=== PATIENT | male | born 1990 | race Asian ===

== ENCOUNTER 2020-08-10 13:06 | Outpatient (REF) | payer OTHER, SELFPAY | END 2020-08-10 13:07 | disposition home or self-care (01) | LOC: HO.LAB 13:06 | PROVIDERS: PCP Family Medicine; Visit Provider Internal Medicine | DX: Z20.828 Contact with and (suspected) exposure to other viral communicable diseases (principal) | CPT/HCPCS: C9803; U0003 ==

== ENCOUNTER 2021-07-08 07:56 | Outpatient (REF) | payer OTHER, SELFPAY ==
[2021-07-08 08:28] LABS: COVID-19 Test Negative (Negative)
== END 2021-07-08 07:57 | disposition home or self-care (01) ==
LOC: HO.LAB 07:56
PROVIDERS: Visit Provider Internal Medicine
DX: Z20.822 Contact with and (suspected) exposure to COVID-19 (principal)
CPT/HCPCS: 36415; 87635; C9803

== ENCOUNTER 2022-03-31 07:50 | Outpatient (REF) | payer OTHER, SELFPAY ==
[2022-03-31 08:44] LABS: COVID-19 Test Negative (Negative); IDNOW Serial# 16C4AD1C
== END 2022-03-31 07:51 | disposition home or self-care (01) ==
LOC: HO.LAB 07:50
PROVIDERS: Visit Provider Internal Medicine
DX: Z20.822 Contact with and (suspected) exposure to COVID-19 (principal)
CPT/HCPCS: 87635; C9803

== ENCOUNTER 2022-07-07 10:40 | Outpatient (REF) | payer OTHER, SELFPAY ==
[2022-07-07 13:50] LABS: MANUAL DIFF FLAG NO
[2022-07-07 14:04] LABS: Basophils Percent Auto 0.1 % (0-2); Eosinophils Absolute Auto 0.1 X10*3/uL (0.0-0.4); Hematocrit 45.3 % (42.0-52.0); Hemoglobin 14.5 g/dl (14.0-18.0); Imm Gran Abs Auto 0.03 X10*3/uL (0.00-0.03); Imm Gran Pct Auto 0.4 % (0.0-0.4); Lymphocytes Absolute Auto 1.2 X10*3/uL (1.2-4.9); Lymphocytes Percent Auto 17.9 % (20-40); Mean Corpuscular Hemoglobin 27.1 pg (27.0-33.0); Mean Corpuscular Volume 84.7 fL (80.0-98.0); Mean Platelet Volume 10.9 fL (9.4-12.4); Monocytes Absolute Auto 0.7 X10*3/uL (0.1-1.2); Monocytes Percent Auto 9.9 % (2-11); Neutrophils Absolute Auto 4.9 x10*3/uL (2.0-8.3); Neutrophils Percent Auto 70.7 % (45-73); Platelet Count 279 X10*3/uL (160-400); Red Blood Count 5.35 X10*6/uL (4.60-5.80); Red Cell Distribution Width 13.2 % (11.0-16.0); White Blood Count 6.9 X10*3/uL (4.8-10.8)
[2022-07-07 14:32] LABS: Alanine Aminotransferase 14 U/L (0-40); Albumin Level 4.7 g/dL (3.5-5.0); Alkaline Phosphatase 59 U/L (39-117); Anion Gap 15 (12-20); Aspartate Amino Transferase 15 U/L (5-37); Bilirubin Total 0.4 mg/dL (0.0-1.0); Blood Urea Nitrogen 10 mg/dL (9-16); Calcium 9.4 mg/dL (8.4-10.2); Carbon Dioxide 25 mmol/L (22-29); Chloride 104 mmol/L (96-108); Cholesterol 277 mg/dL; Estimated Glomerular Filt Rate > 60; Glucose Fasting 91 mg/dL (60-99); HDL Cholesterol 44 mg/dL; LDL Cholesterol Calculated 212 mg/dl; Potassium 4.3 mmol/L (3.3-5.1); Sodium 140 mmol/L (135-145); Total Protein 7.6 g/dL (6.5-8.0); Triglycerides 109 mg/dL
[2022-07-07 16:12] LABS: Free T4 (Free Thyroxine) 0.82 ng/dL (0.71-1.85)
== END 2022-07-07 10:41 | disposition home or self-care (01) ==
LOC: HO.WFDLDS 10:40
PROVIDERS: Visit Provider Nurse Practitioner Family
DX: Z00.00 Encounter for general adult medical examination without abnormal findings (principal); E03.9 Hypothyroidism, unspecified
CPT/HCPCS: 36415; 80053; 80061; 84439; 84443; 85025

== ENCOUNTER 2022-10-24 12:34 | Outpatient (REF) | payer OTHER, SELFPAY ==
[2022-10-24 14:56] LABS: TSH reflex Free T4 9.93 uIU/mL (0.32-4.0)
[2022-10-24 15:56] LABS: Free T4 (Free Thyroxine) 1.14 ng/dL (0.71-1.85)
== END 2022-10-24 12:35 | disposition home or self-care (01) ==
LOC: HO.WFDLDS 12:34
PROVIDERS: Visit Provider Nurse Practitioner Family
DX: E03.9 Hypothyroidism, unspecified (principal)
CPT/HCPCS: 36415; 84439; 84443

== ENCOUNTER 2022-12-01 08:07 | Outpatient (REF) | payer OTHER, SELFPAY ==
[2022-12-01 12:17] LABS: TSH reflex Free T4 10.97 uIU/mL (0.32-4.0)
[2022-12-01 12:57] LABS: Free T4 (Free Thyroxine) 0.95 ng/dL (0.71-1.85)
[2022-12-03 05:54] LABS: Triiodothyronine T3 Free 2.2 pg/mL (2.3-4.2)
== END 2022-12-01 08:08 | disposition home or self-care (01) ==
LOC: HO.WFDLDS 08:07
PROVIDERS: Visit Provider Nurse Practitioner Family
DX: E03.9 Hypothyroidism, unspecified (principal)
CPT/HCPCS: 36415; 84439; 84443; 84481

== ENCOUNTER 2022-12-05 11:05 | Outpatient (REF) | payer OTHER, SELFPAY ==
[2022-12-05 15:12] LABS: Iron 69 mcg/dL (45-160); Percent Iron Saturation 23 % (15-50); Total Iron Binding Capacity 300 mcg/dL (228-428); Unsaturated Iron Binding 231 ug/dL
[2022-12-05 15:22] LABS: TSH reflex Free T4 15.22 uIU/mL (0.32-4.0); Vitamin D 25-OH Total 13.4 ng/mL (>30)
[2022-12-05 15:52] LABS: Free T4 (Free Thyroxine) 1.23 ng/dL (0.71-1.85)
== END 2022-12-05 11:06 | disposition home or self-care (01) ==
LOC: HO.WFDLDS 11:05
PROVIDERS: Visit Provider Nurse Practitioner Family
DX: E03.9 Hypothyroidism, unspecified (principal)
CPT/HCPCS: 36415; 82306; 83540; 84439; 84443

== ENCOUNTER 2023-01-04 12:18 | Outpatient (REF) | payer OTHER, SELFPAY ==
[2023-01-04 14:36] LABS: TSH reflex Free T4 0.04 uIU/mL (0.32-4.0)
[2023-01-04 15:19] LABS: Free T4 (Free Thyroxine) 2.01 ng/dL (0.71-1.85)
== END 2023-01-04 12:19 | disposition home or self-care (01) ==
LOC: HO.WFDLDS 12:18
PROVIDERS: Visit Provider Nurse Practitioner Family
DX: E03.9 Hypothyroidism, unspecified (principal)
CPT/HCPCS: 36415; 84439; 84443

== ENCOUNTER 2023-01-06 07:15 | Outpatient (REF) | payer OTHER, SELFPAY | END 2023-01-06 07:16 | disposition home or self-care (01) | LOC: HO.HOSX 07:15 | PROVIDERS: Visit Provider Physician Assistant | DX: Z13.89 Encounter for screening for other disorder (principal) ==

== ENCOUNTER 2023-01-16 10:46 | Outpatient (REF) | payer OTHER, SELFPAY | END 2023-01-16 10:47 | disposition home or self-care (01) | LOC: HO.HOSX 10:46 | PROVIDERS: Visit Provider Physician Assistant | DX: Z13.89 Encounter for screening for other disorder (principal) ==

== ENCOUNTER 2023-05-08 12:25 | Outpatient (AMB) | payer OTHER, SELFPAY ==
[2023-05-08 12:28] VITALS: BP 110/62; PULSE 57; RESP 16; TEMP 36.3; O2SAT 97; BMI 38.5
--- NOTE | 2023-05-08 12:28 | A.OFFPC_ITS ---
Vital Signs 05/08/23 12:28 Height 5 ft 8 in Weight 253 lb 6 oz BMI 38.5 BP 110/62 Blood Pressure Location Lt brachial Position Sitting Respiration 16 Pulse 57 Pulse Source Pulse Oximeter Temp 97.3 F Temp Source Oral Pulse Oximetry (%) 97 Oxygen Delivery Method Room Air Intake Visit Reasons: 6 week f/u hypothyroidism Intake Note: Patient is here for 6 month follow up on hypothyroid. Allergies No Known Allergies Allergy (Verified 05/08/23 12:31) Tobacco use date assessed: 05/08/23 HPI HPI Comments History of Present Illness Details 32 y/o male presents for hypothyroidism follow up. He was referred to endocrinology. He notes that his appointment has been cancelled twice by the provider. He has an appointment scheduled for 06/12/2023. His TSH was low, 0.04 and free T4 was elevated, 2.01 in December,. His Levothyroxine was decreased from 400 mcg daily to 200 mcg daily. He notes he has been taking the medication as prescribed/instructed. He denies any acute symptoms at this time. 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 Cognitive needs: No Hearing needs: No Vision needs: No Review of Systems Const Details: Const Denies chills, Denies fatigue, Denies fever(s), Denies headache(s) and Denies weakness ENT Denies dizziness and Denies headache(s) Card Denies chest pain, Denies lightheadedness, Denies dyspnea and Denies other (Palpitations) Resp Denies cough, Denies dyspnea, Denies wheezing and Denies other ( shortness of breath) GI Denies abdominal pain, Denies melena, Denies hematochezia, Denies change in bowel habits, Denies dyspepsia and Denies nausea Denies hematuria and Denies dysuria Musc Denies abnormal gait, Denies myalgias, Denies arthralgias, Denies numbness and Denies tingling Skin/Breast Denies rash, Denies unusual bruising and Denies wounds Neuro Denies abnormal gait, Denies dizziness, Denies headache(s), Denies memory loss, Denies numbness, Denies Sensory deficit (Neuro), Denies tingling and Denies weakness Psych Denies anxiety, Denies depression, Denies memory loss Endo Denies cold intolerance, Denies fatigue, Denies heat intolerance, Denies polydipsia and Denies polyuria Aller/Immun Denies wheezing Physical exam (Primary Care) Vital Signs: Last Vital Signs Temp 97.3 F 05/08/23 12:28 Pulse 57 05/08/23 12:28 Resp 16 05/08/23 12:28 BP 110/62 05/08/23 12:28 Pulse Ox 97 05/08/23 12:28 Oxygen Delivery Method Room Air 05/08/23 12:28 BMI result Body Mass Index 38.5 Tobacco/Smoking Status: Tobacco use Status Tobacco use date assessed 05/08/23 05/08/23 12:34 Patient Tobacco Use Status Never used Tobacco 05/08/23 12:34 e-Cigarette/Vaping Use Never Used 05/08/23 12:34 Const Other: General: no acute distress and well developed Nutritional Appearance: well nourished Orientation/consciousness: patient oriented x3 HENMT Head: Yes normocephalic and Yes atraumatic Eyes General: appearance normal, both eyes and all related structures Pupils: Equal, round and reactive pupils present EOM: EOMs intact bilaterally Resp Effort & Inspection: normal respiratory effort Auscultation: clear to auscultation bilaterally Cardio Rate: regular rate Rhythm: regular rhythm Heart sounds: S1 normal heart sound present, S2 normal heart sound present, no gallops, no murmurs and no rubs GI Palpation (GI): No Abdominal aortic bruit present, Soft to palpation, nontender, No hepatosplenomegaly present and No Rebound tenderness present Auscultation: normal bowel sounds General: Yes no CVA tenderness Back/Spine/Pelvis Back: no CVA tenderness Cervical Spine: cervical ROM normal and No Cervical spine tenderness Thoracic/Lumbar Spine: thoraco-lumbar ROM normal, No pain with thoraco-lumbar ROM, No thoracic spinal tenderness and No lumbar spinal tenderness Extrem General: Yes normal to inspection, No edema and No calf tenderness Skin General: warm and dry. Normal skin color. Normal skin turgor Lesions: no lesions Rashes: no rashes Trauma: no lacerations or abrasions Wounds: no wounds Nails: normal Neuro General: patient oriented x3, gait normal and no focal neuro deficit Cranial nerves: Yes Equal, round and reactive pupils present Cognition (Neuro): normal cognition Gait exam (Neuro): Normal gait present Sensory Exam: No Sensory deficit (Neuro) Psych Appearance: grossly normal Affect: normal affect Attitude: cooperative Thought process: Normal thought process present Assessment and Plan Assessment & Plan (1) Hypothyroidism: Code(s): E03.9 - Hypothyroidism, unspecified Plan: His TSH was low, 0.04 and free T4 was elevated, 2.01 in December,. His Levothyroxine was decreased from 400 mcg daily to 200 mcg daily. TSH/T4 ordered. Will review results and make changes to his care plan if warranted Continue to take levothyroxine as prescribed Verbalized understanding and agreed with the treatment plan. (2) Vitamin D deficiency: Code(s): E55.9 - Vitamin D deficiency, unspecified Plan: His vitamin D level was 13.4 in November, He was prescribed Vitamin D3 once weekly for 8 weeks Will check Vit D level and make changes to his care plan if warranted Orders: Orders TSH reflex Free T4 Today E03.9 - Hypothyroidism, unspecified Vitamin D 25-OH Total Today E55.9 - Vitamin D deficiency, unspecified Coding Level of Care Code Est Pt Level 3 (01985) Diagnoses Hypothyroidism E03.9 Vitamin D deficiency E55.9
== END 2023-05-08 13:00 | disposition home or self-care (01) ==
PROVIDERS: PCP Nurse Practitioner Family; Visit Provider Nurse Practitioner Family
DX: E03.9 Hypothyroidism, unspecified (principal); E55.9 Vitamin D deficiency, unspecified
CPT/HCPCS: 99213

== ENCOUNTER 2023-05-08 12:56 | Outpatient (REF) | payer OTHER, SELFPAY ==
[2023-05-08 14:52] LABS: TSH reflex Free T4 22.58 uIU/mL (0.32-4.0)
[2023-05-08 16:54] LABS: Free T4 (Free Thyroxine) 0.94 ng/dL (0.71-1.85)
== END 2023-05-08 12:57 | disposition home or self-care (01) ==
LOC: HO.WFDLDS 12:56
PROVIDERS: Visit Provider Nurse Practitioner Family
DX: E03.9 Hypothyroidism, unspecified (principal); E55.9 Vitamin D deficiency, unspecified
CPT/HCPCS: 36415; 84439; 84443

== ENCOUNTER 2023-06-12 15:36 | Outpatient (AMB) | payer OTHER, SELFPAY ==
--- NOTE | 2023-06-12 15:49 | A.OFFVIS_ITS ---
Intake Vital Signs 06/12/23 15:51 Height 5 ft 8 in Weight 252 lb 3.341 oz BMI 38.3 BP 116/50 L Blood Pressure Location Lt brachial Position Sitting Pulse 100 Pulse Source Pulse Oximeter Intake Visit Reasons: Hypothyroidism/confirmed Intake Note: Patient present today for Hypothyroidism office visit. 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 First diagnosed with Hypothyroidism since age 27 with labs revealing elevated TSH. Currently using levothyroxine 300 ug .On that dose for 1 yr Takes meds compliantly without food and not with other meds , Dose was increased form 250 ug 6 wks ago Denies + fatigue, +weight gain of 25 lbs in 1 yr , -cold intolerance, -dry skin, -hair loss, -constipation. There is no hx of hyperlipidemia . Denies obstructive sx of goiter . Denies consuming any kelp or seaweed. Denies taking amiodarone. 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 Thyroid gland measure gms . No nodules or tenderness palpated. There is no ce rvical adenopathy palpated. Lungs CTA. Heart S1, S2 Reg R/R -M/R/G. Abdominal exam benign. Skin exam reveals absence of dryness or thyroid dermopathy or vitiligo. Nail exam reveals absence of thyroid acropachy or oncholysis. Neurologic exam reveals 2+ reflexes . Muscle Strength is 5/5 proximally. There are no tremors in upper extremities. Assessment & Plan Assessment & Plan (1) Hypothyroidism: Code(s): E03.9 - Hypothyroidism, unspecified Plan: Is a 33-year-old male with history of hypothyroidism being treated with levothyroxine 300 mcg q.d.. He appears to be clinically euthyroid but has elevated TSH. Plan is to recheck TSH, free T4 and anti-peroxidase antibodies. If TSH is suppressed, would decrease levothyroxine to 275 mcg . Would consider switching to branded levothyroxine namely Synthroid based on above lab test Orders: Orders Thyroid Stimulating Hormone Today E03.9 - Hypothyroidism, unspecified Free T4 (Free Thyroxine) Today E03.9 - Hypothyroidism, unspecified Thyroid Peroxidase Antibodies Today E03.9 - Hypothyroidism, unspecified Coding Level of Care Code New Pt Level 4 (75393) Diagnoses Hypothyroidism E03.9
[2023-06-12 15:51] VITALS: BP 116/50; PULSE 100; BMI 38.3
== END 2023-06-12 16:16 | disposition home or self-care (01) ==
PROVIDERS: PCP Nurse Practitioner Family; Visit Provider Internal Medicine Endocrinology, Diabetes & Metabolism
DX: E03.9 Hypothyroidism, unspecified (principal)
CPT/HCPCS: 99204

== ENCOUNTER → 2023-06-12 15:36 | Outpatient (BNVA) | payer OTHER, SELFPAY | PROVIDERS: Visit Provider Internal Medicine Endocrinology, Diabetes & Metabolism ==

== ENCOUNTER 2023-09-02 08:22 | Outpatient (REF) | payer OTHER, SELFPAY ==
[2023-09-02 10:00] LABS: Free T4 (Free Thyroxine) 1.15 ng/dL (0.71-1.85); Thyroid Stimulating Hormone 2.57 uIU/mL (0.32-4.0)
[2023-09-05 19:28] LABS: Thyroid Peroxidase Antibodies 20 IU/mL (<9)
== END 2023-09-02 08:23 | disposition home or self-care (01) ==
LOC: HO.LAB 08:22
PROVIDERS: Internal Medicine Endocrinology, Diabetes & Metabolism; PCP Nurse Practitioner Family; Visit Provider Nurse Practitioner Family
DX: E03.9 Hypothyroidism, unspecified (principal)
CPT/HCPCS: 36415; 84439; 84443; 86376

== ENCOUNTER 2023-09-05 15:46 | Outpatient (AMB) | payer OTHER, SELFPAY ==
--- NOTE | 2023-09-05 15:48 | MHC.PC.OV ---
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 Accompanied by: Self / Same As Patient Allergies No Known Allergies Allergy (Verified 09/05/23 16:13) Medication List - Last Reconciled 09/05/23 by Eros Oliveira CNP cholecalciferol (vitamin D3) 1,250 mcg PO QWEEK 8 weeks levothyroxine 300 mcg PO DAILY 30 days Tobacco use date assessed: 05/08/23 Dental Screening Dental Screen Date: 09/05/23 Did you have a dental visit in the last 12 months?: No Did you have a dental problem in the last 6 months where you did not have access to dental care?: No Was dental information given to patient?: Patient has dentist HPI HPI Comments History of Present Illness Details 33-year-old male presents for hypothyroidism follow-up He is on levothyroxine 300 mcg daily, he notes he takes daily with a full glass of water, in an empty stomach, 30 minutes to an hour before taking medications or food Recent TSH and free T4 is normal, TPO AB is pending He was seen by endocrinology in June. The plan was to recheck TSH, free T4, and TPO AB If TSH is suppressed, would decrease levothyroxine to 275 mcg . Would consider switching to branded levothyroxine namely Synthroid based on above lab test He has a follow-up appointment with endocrinology on 10/12/2023 He reports fatigue despite getting adequate sleep, sometimes 10 hours. 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 Cognitive needs: No Hearing needs: No Vision needs: No Review of Systems Const Details: Const Denies chills, Reports fatigue, Denies fever(s), Denies headache(s) and Denies weakness ENT Denies dizziness and Denies headache(s) Card Denies chest pain, Denies lightheadedness, Denies dyspnea and Denies other (Palpitations) Resp Denies cough, Denies dyspnea, Denies wheezing and Denies other ( shortness of breath) GI Denies abdominal pain, Denies melena, Denies hematochezia, Denies change in bowel habits, Denies dyspepsia and Denies nausea Denies hematuria and Denies dysuria Musc Denies abnormal gait, Denies myalgias, Denies arthralgias, Denies numbness and Denies tingling Skin/Breast Denies rash, Denies unusual bruising and Denies wounds Neuro Denies abnormal gait, Denies dizziness, Denies headache(s), Denies memory loss, Denies numbness, Denies Sensory deficit (Neuro), Denies tingling and Denies weakness Psych Denies anxiety, Denies depression, Denies memory loss Endo Denies cold intolerance, Reports fatigue, Denies heat intolerance, Denies polydipsia and Denies polyuria Aller/Immun Denies wheezing Physical exam (Primary Care) Vital Signs: Last Vital Signs Temp 97.3 F 09/05/23 15:49 Pulse 104 H 09/05/23 15:49 Resp 13 09/05/23 15:49 BP 122/70 09/05/23 15:49 Pulse Ox 99 09/05/23 15:49 Oxygen Delivery Method Room Air 09/05/23 15:49 BMI result Body Mass Index 39.4 Tobacco/Smoking Status: Tobacco use Status Tobacco use date assessed 05/08/23 09/05/23 15:57 Patient Tobacco Use Status Never used Tobacco 09/05/23 15:57 e-Cigarette/Vaping Use Never Used 09/05/23 15:57 Const Other: General: no acute distress and well developed Nutritional Appearance: well nourished Orientation/consciousness: patient oriented x3 HENMT Head: Yes normocephalic and Yes atraumatic Eyes General: appearance normal, both eyes and all related structures Pupils: Equal, round and reactive pupils present EOM: EOMs intact bilaterally Resp Effort & Inspection: normal respiratory effort Auscultation: clear to auscultation bilaterally Cardio Rate: regular rate Rhythm: regular rhythm Heart sounds: S1 normal heart sound present, S2 normal heart sound present, no gallops, no murmurs and no rubs GI Palpation (GI): No Abdominal aortic bruit present, Soft to palpation, nontender, No hepatosplenomegaly present and No Rebound tenderness present Auscultation: normal bowel sounds General: Yes no CVA tenderness Back/Spine/Pelvis Back: no CVA tenderness Cervical Spine: cervical ROM normal and No Cervical spine tenderness Thoracic/Lumbar Spine: thoraco-lumbar ROM normal, No pain with thoraco-lumbar ROM, No thoracic spinal tenderness and No lumbar spinal tenderness Extrem General: Yes normal to inspection, No edema and No calf tenderness Skin General: warm and dry. Normal skin color. Normal skin turgor Neuro General: patient oriented x3, gait normal and no focal neuro deficit Cranial nerves: Yes Equal, round and reactive pupils present Cognition (Neuro): normal cognition Gait exam (Neuro): Normal gait present Sensory Exam: No Sensory deficit (Neuro) Psych Appearance: grossly normal Affect: normal affect Attitude: cooperative Thought process: Normal thought process present Assessment and Plan Assessment & Plan (1) Hypothyroidism: Code(s): E03.9 - Hypothyroidism, unspecified Plan: Recent TSH and free T4 is normal, TPO AB is pending He notes he received a phone call earlier today from his [place] [facility] and informed that he is TSH and FT4 were normal it to continue to take levothyroxine 300 mcg daily Encouraged to continue to take levothyroxine as prescribed Follow-up with endocrinology as planned Return in 3-4 weeks for an extended physical exam or sooner with symptoms or concerns Verbalized understanding and agreed with treatment plan (2) Fatigue: Code(s): R53.83 - Other fatigue Plan: Reports fatigue despite getting adequate sleep, sometimes 10 hours Likely due to vitamin-D deficiency given his history. He has not not gotten repeat vitamin-D level blood work done. Will check vitamin-D level. Will also check CBC and CMP. Will make changes as needed Advised to get blood work done as soon as possible Routine exercise encouraged Follow-up with worsening or new symptoms Verbalized understanding and agreed with treatment plan (3) Vitamin D deficiency: Code(s): E55.9 - Vitamin D deficiency, unspecified Plan: As above (4) Laboratory tests ordered as part of a complete physical exam (CPE): Code(s): Z00.00 - Encounter for general adult medical examination without abnormal findings Plan: Fasting labs ordered as part of a complete physical exam. Advised to fast for at least 10 hours before getting labs drawn. May drink water Verbalized understanding and agreed with treatment plan. Orders: Orders Vitamin D 25-OH Total Today E55.9 - Vitamin D deficiency, unspecified Complete Blood Count Auto Diff Today R53.83 - Other fatigue, Z00.00 - Encounter for general adult medical examination without abnormal findings Comprehensive [place]. Panel Fast Today R53.83 - Other fatigue, Z00.00 - Encounter for general adult medical examination without abnormal findings Lipid Panel Today Z00.00 - Encounter for general adult medical examination without abnormal findings Medications: Refilled levothyroxine 300 mcg PO DAILY 30 tabs 3RF 30 days Coding Level of Care Code Est Pt Level 3 (47852) Diagnoses Hypothyroidism E03.9 Fatigue R53.83 Vitamin D deficiency E55.9 Laboratory tests ordered as part of a complete physical exam (CPE) Z00.00
[2023-09-05 15:49] VITALS: BP 122/70; PULSE 104; RESP 13; TEMP 36.3; O2SAT 99; BMI 39.4
== END 2023-09-05 16:22 | disposition home or self-care (01) ==
PROVIDERS: PCP Nurse Practitioner Family; Visit Provider Nurse Practitioner Family
DX: E03.9 Hypothyroidism, unspecified (principal); R53.83 Other fatigue; E55.9 Vitamin D deficiency, unspecified; Z00.00 Encounter for general adult medical examination without abnormal findings
CPT/HCPCS: 99213

== ENCOUNTER 2023-12-14 11:36 | Outpatient (AMB) | payer SELFPAY ==
--- NOTE | 2023-12-14 11:38 | A.OFFVIS_ITS ---
Intake Vital Signs 12/14/23 11:40 Height 5 ft 8 in Weight 262 lb 9.129 oz BMI 39.9 BP 112/60 Blood Pressure Location Rt brachial Position Sitting Pulse 63 Pulse Source Pulse Oximeter Intake Visit Reasons: Hypothyroidism-confirmed Intake Note: Patient present today for Hypothyroidism follow up visit. Director Presales Required: No Accompanied by: Self / Same As Patient Allergies No Known Allergies Allergy (Verified 12/14/23 11:41) HPI HPI Comments History of Present Illness Details 33 YO M with PMHx [] who is seen in [facility] ultation at the request of his PCP for Hyothyroidism. First diagnosed with Hypothyroidism since age 27 with labs revealing elevated TSH. Currently using levothyroxine 300 ug .On that dose for 1 yr Takes meds compliantly without food and not with other meds , Denies + fatigue, +weight gain of 25 lbs in 1 yr , -cold intolerance, -dry skin, -hair loss, -constipation. There is no hx of hyperlipidemia . Denies obstructive sx of goiter . Denies consuming any kelp or seaweed. Denies taking amiodarone. 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 Thyroid gland measure 15 gms . No nodules or tenderness palpated. There is no cervical adenopathy palpated. Lungs CTA. Heart S1, S2 Reg R/R -M/R/G. Abdominal exam benign. Skin exam reveals absence of dryness or thyroid dermopathy or vitiligo. Nail exam reveals absence of thyroid acropachy or oncholysis. Neurologic exam reveals 2+ reflexes . Muscle Strength is 5/5 proximally. There are no tremors in upper extremities. Assessment & Plan Assessment & Plan (1) Hypothyroidism: Code(s): E03.9 - Hypothyroidism, unspecified Plan: Is a 33-year-old male with history of hypothyroidism being treated with levothyroxine 300 mcg q.d.. He appears to be clinically and biochemically euthyroid Plan is to continue the current therapy. At this point, patient returned back to the care of his primary care provider returned back to endocrinology if needed Coding Level of Care Code Est Pt Level 3 (98778) Diagnoses Hypothyroidism E03.9
[2023-12-14 11:40] VITALS: BP 112/60; PULSE 63; BMI 39.9
== END 2023-12-14 11:47 | disposition home or self-care (01) ==
PROVIDERS: PCP Nurse Practitioner Family; Visit Provider Internal Medicine Endocrinology, Diabetes & Metabolism
DX: E03.9 Hypothyroidism, unspecified (principal)
CPT/HCPCS: 99213

== ENCOUNTER → 2023-12-14 11:36 | Outpatient (BNVA) | payer OTHER, SELFPAY | PROVIDERS: PCP Nurse Practitioner Family; Visit Provider Internal Medicine Endocrinology, Diabetes & Metabolism | DX: E03.9 Hypothyroidism, unspecified (principal) | CPT/HCPCS: 99212 ==

== ENCOUNTER 2024-07-29 07:59 | Outpatient (REF) | payer SELFPAY ==
[2024-07-29 08:08] LABS: MANUAL DIFF FLAG NO
[2024-07-29 08:27] LABS: Basophils Percent Auto 0.3 % (0-2); Eosinophils Absolute Auto 0.2 X10*3/uL (0.0-0.4); Hematocrit 43.8 % (42.0-52.0); Imm Gran Abs Auto 0.03 X10*3/uL (0.00-0.03); Imm Gran Pct Auto 0.4 % (0.0-0.4); Lymphocytes Absolute Auto 1.8 X10*3/uL (1.2-4.9); Mean Corpuscular Volume 84.4 fL (80.0-98.0); Mean Platelet Volume 10.2 fL (9.4-12.4); Monocytes Absolute Auto 0.8 X10*3/uL (0.1-1.2); Monocytes Percent Auto 10.4 % (2-11); Neutrophils Absolute Auto 4.6 x10*3/uL (2.0-8.3); Neutrophils Percent Auto 62.9 % (45-73); Platelet Count 308 X10*3/uL (160-400); Red Blood Count 5.19 X10*6/uL (4.60-5.80); Red Cell Distribution Width 14.2 % (11.0-16.0); White Blood Count 7.3 X10*3/uL (4.8-10.8)
[2024-07-29 08:59] LABS: Alanine Aminotransferase 20 U/L (0-40); Albumin Level 4.5 g/dL (3.5-5.0); Alkaline Phosphatase 64 U/L (39-117); Anion Gap 11 (12-20); Aspartate Amino Transferase 16 U/L (5-37); Bilirubin Total 0.3 mg/dL (0.0-1.0); Blood Urea Nitrogen 7 mg/dL (9-16); Calcium 9.1 mg/dL (8.4-10.2); Carbon Dioxide 25 mmol/L (22-29); Chloride 107 mmol/L (96-108); Cholesterol 260 mg/dL (<200); Estimated Glomerular Filt Rate > 60; Glucose Fasting 104 mg/dL (60-99); HDL Cholesterol 41 mg/dL (>40); LDL Cholesterol Calculated 192 mg/dL (<100); Potassium 3.8 mmol/L (3.3-5.1); Sodium 139 mmol/L (135-145); Total Protein 7.5 g/dL (6.5-8.0); Triglycerides 138 mg/dL (<150)
[2024-07-29 09:19] LABS: Vitamin D 25-OH Total 17.9 ng/mL (>30)
== END 2024-07-29 08:00 | disposition home or self-care (01) ==
LOC: HO.LAB 07:59
PROVIDERS: PCP Nurse Practitioner Family; Visit Provider Nurse Practitioner Family
DX: Z00.00 Encounter for general adult medical examination without abnormal findings (principal); R53.83 Other fatigue; E55.9 Vitamin D deficiency, unspecified
CPT/HCPCS: 36415; 80053; 80061; 82306; 85025

== ENCOUNTER → 2024-10-18 10:45 | Outpatient (AMB) | payer SELFPAY | END | disposition home or self-care (01) | PROVIDERS: PCP Nurse Practitioner Family; Visit Provider Nurse Practitioner Family ==

== ENCOUNTER → 2024-10-18 10:45 | Outpatient (BNVA) | payer OTHER, SELFPAY | PROVIDERS: PCP Nurse Practitioner Family; Visit Provider Nurse Practitioner Family | DX: E78.00 Pure hypercholesterolemia, unspecified (principal); E55.9 Vitamin D deficiency, unspecified; R73.01 Impaired fasting glucose; E03.9 Hypothyroidism, unspecified | CPT/HCPCS: 99212 ==

== ENCOUNTER 2024-11-02 11:29 | Outpatient (REF) | payer OTHER, SELFPAY ==
[2024-11-02 14:02] LABS: Cholesterol 287 mg/dL (<200); Glucose Fasting 92 mg/dL (60-99); HDL Cholesterol 44 mg/dL (>40); LDL Cholesterol Calculated 226 mg/dL (<100); Triglycerides 85 mg/dL (<150)
[2024-11-02 14:16] LABS: TSH reflex Free T4 9.29 uIU/mL (0.32-4.0)
[2024-11-02 14:52] LABS: Free T4 (Free Thyroxine) 1.45 ng/dL (0.71-1.85)
== END 2024-11-02 11:30 | disposition home or self-care (01) ==
LOC: HO.HMGCLDS 11:29
PROVIDERS: PCP Nurse Practitioner Family; Visit Provider Nurse Practitioner Family
DX: R73.01 Impaired fasting glucose (principal); E78.00 Pure hypercholesterolemia, unspecified; E03.9 Hypothyroidism, unspecified; E55.9 Vitamin D deficiency, unspecified
CPT/HCPCS: 36415; 80061; 82306; 82947; 84439; 84443

== ENCOUNTER 2024-11-04 14:22 | Outpatient (AMB) | payer OTHER, SELFPAY ==
--- NOTE | 2024-11-04 14:16 | A.OFFPC_ITS ---
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 He admits to taking levothyroxine 300 mg daily, with a full glass of water, in an empty stomach, 1 hour before meals other medications. He offers no complaints and denies acute symptoms at this time. 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 Cognitive needs: No Hearing needs: No Vision needs: No Review of Systems Const Details: Const Denies chills, Denies fatigue, Denies fever(s), Denies headache(s) and Denies weakness ENT Denies dizziness and Denies headache(s) Card Denies chest pain, Denies lightheadedness, Denies dyspnea and Denies other (Palpitations) Resp Denies cough, Denies dyspnea, Denies wheezing and Denies other ( shortness of breath) Physical exam (Primary Care) Tobacco/Smoking Status: Tobacco use Status Tobacco use date assessed 11/04/24 11/04/24 14:17 Patient Tobacco Use Status Never used Tobacco 11/04/24 14:17 e-Cigarette/Vaping Use Never Used 11/04/24 14:17 Const Other: Telehealth visit. No physical exam. Telehealth Telehealth Telehealth Platform: Telephone Location of provider rendering services: practice address Location of patient: address on file Patient Identification confirmed using: Name, : Yes Telehealth method: voice only Patient verbally consented to treatment: Yes Patient verbally consented to billing insurance company: Yes Patient informed of any privacy concerns related to visit: Yes Coding Level of Care Code Tele Est Pt Level 3 (81627) Diagnoses Hypothyroidism E03.9 Vitamin D deficiency E55.9 Hypercholesterolemia E78.00 Time Spent (min) 20 Assessment & Plan Assessment & Plan (1) Hypothyroidism: Code(s): E03.9 - Hypothyroidism, unspecified Category: Medical Plan: Recent TSH level is 9.29, T4 is normal. He has been taking levothyroxine 300 mcg daily. Levothyroxine 300 mcg daily refilled; advised to take as prescribed with a full glass of water, in an empty stomach, 1 hour before meals or other medications. Will check free T3 level and make changes as needed. Referred to [facility] endocrinology. Verbalized understanding and agreed with treatment plan. (2) Vitamin D deficiency: Code(s): E55.9 - Vitamin D deficiency, unspecified Category: Medical Plan: Recent vitamin-D level is 18.0. Vitamin D3 1250 mcg weekly ordered. Advised to take as prescribed on same-day each week. Will check vitamin-D level in 6 weeks and make changes as needed. Verbalized understanding and agreed with treatment plan. (3) Hypercholesterolemia: Code(s): E78.00 - Pure hypercholesterolemia, unspecified Category: Medical Plan: Recent total cholesterol and LDL levels are elevated, 287 and 226 respectively. 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 He declines medication treatment at this time and notes he will improve his diet instead. Advised to limit foods high in saturated fat and avoid foods high in trans fat. Routine exercise encouraged. Fast for 10-12 hours, may drink water, and profound lipid panel blood work 2-3 days before next visit. Follow-up in 6 weeks. Verbalized understanding and agreed with treatment plan. Orders: Orders TSH reflex Free T4 6 Weeks E03.9 - Hypothyroidism, unspecified Triiodothyronine T3 Free Today E03.9 - Hypothyroidism, unspecified Referrals Endocrinology Referral E03.9 - Hypothyroidism, unspecified Medications: Refilled cholecalciferol (vitamin D3) 1,250 mcg PO QWEEK 8 tabs 0RF 8 weeks levothyroxine 300 mcg PO DAILY 30 tabs 3RF 30 days
== END 2024-11-04 16:55 | disposition home or self-care (01) ==
LOC: HO.HMCFM 14:22
PROVIDERS: PCP Nurse Practitioner Family; Visit Provider Nurse Practitioner Family
DX: E03.9 Hypothyroidism, unspecified (principal); E55.9 Vitamin D deficiency, unspecified; E78.00 Pure hypercholesterolemia, unspecified

== ENCOUNTER 2025-03-24 13:21 | Outpatient (REF) | payer OTHER, SELFPAY ==
[2025-03-24 14:56] LABS: Cholesterol 254 mg/dL (<200); HDL Cholesterol 36 mg/dL (>40); Triglycerides 125 mg/dL (<150)
[2025-03-24 15:48] LABS: Free T4 (Free Thyroxine) 1.03 ng/dL (0.71-1.85)
== END 2025-03-24 13:22 | disposition home or self-care (01) ==
LOC: HO.LAB 13:21
PROVIDERS: PCP Nurse Practitioner Family; Visit Provider Nurse Practitioner Family
DX: E03.9 Hypothyroidism, unspecified (principal); E78.00 Pure hypercholesterolemia, unspecified
CPT/HCPCS: 36415; 80061; 84439; 84443; 84481

== ENCOUNTER 2025-03-28 09:09 | Outpatient (AMB) | payer OTHER, SELFPAY ==
--- NOTE | 2025-03-28 09:11 | MHC.PC.OV ---
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 Allergies No Known Allergies Allergy (Verified 03/28/25 09:35) Medication List - Last Reconciled 03/28/25 by Eros Oliveira CNP cholecalciferol (vitamin D3) 1,250 mcg PO QWEEK 8 weeks levothyroxine 300 mcg PO DAILY 30 days Tobacco use date assessed: 03/28/25 Dental Screening Dental Screen Date: 03/28/25 Did you have a dental visit in the last 12 months?: No Did you have a dental problem in the last 6 months where you did not have access to dental care?: No Was dental information given to patient?: Yes HPI HPI Comments History of Present Illness Details 34-year-old male presents for hypothyroidism and hypercholesterolemia follow-up. He admits to taking levothyroxine 300 mg daily with a full glass of water, in an empty stomach, at least 1 hour before food/meals. Notes that he has been making healthy dietary choices and exercising routinely. He notes that his mother has history of hyperlipidemia. He offers no complaints and denies acute symptoms at this time. He was referred to endocrinology for hypothyroidism at his last visit in October. However, he did not follow-up. 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 Cognitive needs: No Hearing needs: No Vision needs: No Questionnaire Thrive Questionnaire Date Thrive assessed: 10/18/24 I am a: Patient What is your living situation today?: I have a steady place to live Within the past 12 months, did the food you bought not last and you didn't have the money to get more?: I choose not to answer this question Within the past 12 months, did you worry whether your food would run out before you got money to buy more?: I choose not to answer this question Do you have trouble paying for medicines?: No Do you have trouble getting transportation to medical appointments?: No Do you have trouble paying your heating and electricity bill?: No Do you have trouble taking care of your child, family member or friend?: No Do you have trouble with day-to-day activities such as bathing, preparing meals, shopping, managing finances, etc.?: No Are you currently unemployed and looking for a job?: No Are you interested in more education?: No Please select the resources that you would like help with: None Currently or been in a relationship where the following occur: No concerns reported THRIVE Score: 0 Review of Systems Const Details: Const Denies chills, Denies fatigue, Denies fever(s), Denies headache(s) and Denies weakness ENT Denies dizziness and Denies headache(s) Card Denies chest pain, Denies lightheadedness, Denies dyspnea and Denies other (Palpitations) Resp Denies cough, Denies dyspnea, Denies wheezing and Denies other ( shortness of breath) GI Denies abdominal pain, Denies melena, Denies hematochezia, Denies change in bowel habits, Denies dyspepsia and Denies nausea Denies hematuria and Denies dysuria Musc Denies abnormal gait, Denies myalgias, Denies arthralgias, Denies numbness and Denies tingling Skin/Breast Denies rash, Denies unusual bruising and Denies wounds Neuro Denies abnormal gait, Denies dizziness, Denies headache(s), Denies memory loss, Denies numbness, Denies Sensory deficit (Neuro), Denies tingling and Denies weakness Psych Denies anxiety, Denies depression, Denies memory loss Endo Denies cold intolerance, Denies fatigue, Denies heat intolerance, Denies polydipsia and Denies polyuria Aller/Immun Denies wheezing Physical exam (Primary Care) Vital Signs: Last Vital Signs Temp 98.4 F 03/28/25 09:17 Pulse 51 03/28/25 09:17 Resp 16 03/28/25 09:17 BP 112/70 03/28/25 09:17 Pulse Ox 99 03/28/25 09:17 Oxygen Delivery Method Room Air 03/28/25 09:17 BMI result Body Mass Index 34.4 Tobacco/Smoking Status: Tobacco use Status Tobacco use date assessed 03/28/25 03/28/25 09:16 Patient Tobacco Use Status Never used Tobacco 03/28/25 09:14 e-Cigarette/Vaping Use Never Used 03/28/25 09:14 Thrive Assessment: Date of Thrive Assessment Date Thrive assessed 10/18/24 03/28/25 09:14 Currently or been in a relationship where the following occur: No concerns reported Const Other: General: no acute distress and well developed Nutritional Appearance: well nourished Orientation/consciousness: patient oriented x3 HENMT Head: Yes normocephalic and Yes atraumatic Eyes General: appearance normal, both eyes and all related structures Pupils: Equal, round and reactive pupils present EOM: EOMs intact bilaterally Resp Effort & Inspection: normal respiratory effort Auscultation: clear to auscultation bilaterally Cardio Rate: regular rate Rhythm: regular rhythm Heart sounds: S1 normal heart sound present, S2 normal heart sound present, no gallops, no murmurs and no rubs GI Palpation (GI): No Abdominal aortic bruit present, Soft to palpation, nontender, No hepatosplenomegaly present and No Rebound tenderness present Auscultation: normal bowel sounds General: Yes no CVA tenderness Back/Spine/Pelvis Back: no CVA tenderness Cervical Spine: cervical ROM normal and No Cervical spine tenderness Thoracic/Lumbar Spine: thoraco-lumbar ROM normal, No pain with thoraco-lumbar ROM, No thoracic spinal tenderness and No lumbar spinal tenderness Extrem General: Yes normal to inspection, No edema and No calf tenderness Skin General: warm and dry. Normal skin color. Normal skin turgor Neuro General: patient oriented x3, gait normal and no focal neuro deficit Cranial nerves: Yes Equal, round and reactive pupils present Cognition (Neuro): normal cognition Gait exam (Neuro): Normal gait present Sensory Exam: No Sensory deficit (Neuro) Psych Appearance: grossly normal Affect: normal affect Attitude: cooperative Thought process: Normal thought process present Coding Level of Care Code Est Pt Level 4 (24853) Diagnoses Hypothyroidism E03.9 Hypercholesterolemia E78.00 Vitamin D deficiency E55.9 Assessment & Plan Assessment & Plan (1) Hypothyroidism: Code(s): E03.9 - Hypothyroidism, unspecified Category: Medical Plan: Recent TSH level is significantly elevated, 26.56, free T3 is low, 1.8, free T4 is normal. Will change levothyroxine to Synthroid (no substitution) 300 mcg daily. Advised to take with a full glass of water, in an empty stomach, at least 1 hour before other medications or meals. Encouraged to [place] [facility] [place] to schedule a follow-up. Perform TSH/T4 and free T3 blood work 2-3 days before next visit. Follow-up with PCP in 6 weeks or sooner with symptoms or concerns. Verbalized understanding and agreed with the plan. (2) Hypercholesterolemia: Code(s): E78.00 - Pure hypercholesterolemia, unspecified Category: Medical Plan: Recent total cholesterol and LDL levels are elevated, 254 and 183 respectively, HDL level is low, 36. He has been making healthy lifestyle changes. His mother has history of hypercholesterolemia. Will start atorvastatin 10 mg daily at bedtime; advised to take as prescribed. Instructed on the risks, benefits, and potential adverse reactions of the medication. Advised to limit foods high in saturated fat and avoid foods high in trans fat. Routine exercise encouraged. Fast for 10-12 hours, may drink water, and perform lipid panel blood work 2-3 days before next visit. Follow-up in 6 weeks. Verbalized understanding and agreed with the plan. (3) Vitamin D deficiency: Code(s): E55.9 - Vitamin D deficiency, unspecified Category: Medical Plan: He completed vitamin D3 1250 mcg weekly. Will recheck vitamin-D levels and make changes as needed. Verbalized understanding and agreed with the plan. Orders: Orders Lipid Panel 6 Weeks E78.00 - Pure hypercholesterolemia, unspecified Triiodothyronine T3 Free 6 Weeks E03.9 - Hypothyroidism, unspecified Vitamin D 25-OH Total Today E55.9 - Vitamin D deficiency, unspecified TSH reflex Free T4 6 Weeks E03.9 - Hypothyroidism, unspecified Medications: New levothyroxine (Synthroid) Synthroid. No substitution 300 mcg PO DAILY 30 tabs 3RF 30 days atorvastatin (Lipitor) 10 mg PO BEDTIME 30 tabs 3RF 30 days Discontinued cholecalciferol (vitamin D3) Discontinued Reason: Patient no longer taking 1,250 mcg PO QWEEK 8 weeks 8 tabs 0RF levothyroxine Discontinued Reason: Doctor's Order 300 mcg PO DAILY 30 days 30 tabs 1RF
[2025-03-28 09:17] VITALS: BP 112/70; PULSE 51; RESP 16; TEMP 36.9; O2SAT 99; BMI 34.4
== END 2025-03-28 09:49 | disposition home or self-care (01) ==
LOC: HO.HMCFM 09:10
PROVIDERS: PCP Nurse Practitioner Family; Visit Provider Nurse Practitioner Family
DX: E03.9 Hypothyroidism, unspecified (principal); E78.00 Pure hypercholesterolemia, unspecified; E55.9 Vitamin D deficiency, unspecified

== ENCOUNTER → 2025-03-28 09:09 | Outpatient (BNVA) | payer OTHER, SELFPAY | PROVIDERS: PCP Nurse Practitioner Family; Visit Provider Nurse Practitioner Family | DX: E03.9 Hypothyroidism, unspecified (principal); E78.00 Pure hypercholesterolemia, unspecified; E55.9 Vitamin D deficiency, unspecified | CPT/HCPCS: 99212 ==

== ENCOUNTER 2025-05-24 10:10 | Outpatient (REF) | payer OTHER, SELFPAY ==
[2025-05-24 14:02] LABS: Cholesterol 257 mg/dL (<200); HDL Cholesterol 46 mg/dL (>40); Triglycerides 90 mg/dL (<150)
== END 2025-05-24 10:11 | disposition home or self-care (01) ==
LOC: HO.HMGCLDS 10:10
PROVIDERS: PCP Nurse Practitioner Family; Visit Provider Nurse Practitioner Family
DX: E78.00 Pure hypercholesterolemia, unspecified (principal); E03.9 Hypothyroidism, unspecified; E55.9 Vitamin D deficiency, unspecified
CPT/HCPCS: 36415; 80061; 82306; 84443; 84481

== ENCOUNTER 2025-05-30 08:50 | Outpatient (AMB) | payer OTHER, SELFPAY ==
--- NOTE | 2025-05-30 09:01 | A.OFFVIS_ITS ---
Vital Signs 05/30/25 09:02 Height 5 ft 9 in Weight 236 lb 8.896 oz BMI 34.9 BP 90/60 Blood Pressure Location Lt brachial Position Sitting Pulse 54 Pulse Source Pulse Oximeter Pulse Oximetry (%) 98 Oxygen Delivery Method Room Air Intake Visit Reasons: Hypothyroidism Intake Note: Patient present today for Hypothyroidism office visit. Boarder Hand Required: No Accompanied by: Self / Same As Patient Allergies No Known Allergies Allergy (Verified 05/30/25 09:06) Medication List - Last Reconciled 05/30/25 by Roxanne Montaño MD atorvastatin (Lipitor) 10 mg PO BEDTIME 30 days levothyroxine (Synthroid) 300 mcg PO DAILY 30 days HPI Comments Details: 35-year-old male coming in today for follow up of hypothyroidism. Last seen by Dr. Kan in December 2023. First diagnosed with Hypothyroidism since age 27 with labs revealing elevated TSH. Currently using brand-name Synthroid 300 ug daily , takes it between 7 to 9 am on empty stomach and waits an hour after before he drinks coffee. He was switched from generic to brand name because of fluctuations in TSH. Last set of labs 05/24/2025 showed TSH of 1.35, free T3 at 3.2. Patient currently denies heat or cold intolerance, diarrhea or constipation, hair loss, palpitation, anxiety, weight changes, mood changes, low energy, changes in appearance of eyes or vision changes, tremors, increased diaphoresis or dry skin. ? Patient denies any difficulty swallowing, pain on swallowing or voice changes or difficulty breathing. Patient denies any history of childhood neck radiation. Denies having ever used lithium, amiodarone or biotin supplements. Patient denies any family history of thyroid cancer. Mother has hypothyrodism Physical exam General: sitting comfortably in no acute distress HEENT: normocephalic/atraumatic, Neck: supple, Cardiac: normal heart sounds Pulm: normal breath sounds B/L, no added breath sounds Abd: not distended, no tenderness Extremities: no edema, no signs of myxedema Laboratory Tests 07/20/18 09/02/23 11/02/24 10:20 08:30 11:36 TSH 9.29 H Free T4 1.45 Free T3 TSH Receptor Antibody 55.9 H Thyroid Peroxidase Ab 20 H 03/24/25 05/24/25 13:51 10:50 TSH 26.56 H 1.35 Free T4 1.03 Free T3 1.8 L 3.2 TSH Receptor Antibody Thyroid Peroxidase Ab PFSH Medical History Graves disease Surgical History No history of previous surgery Family History Maternal Grandfather Cancer No family history of mental disorder Mother Thyroid disorder Social History Housing: Apartment Patient Tobacco Use Status: Never used Tobacco e-Cigarette/Vaping Use: Never Used Second Hand Smoke Exposure: No service: No Current occupational status: employed 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 Cognitive needs: No Hearing needs: No Vision needs: No Physical Exam Vital Signs: Last Vital Signs Pulse 54 05/30/25 09:02 BP 90/60 05/30/25 09:02 Pulse Ox 98 05/30/25 09:02 Oxygen Delivery Method Room Air 05/30/25 09:02 BMI result Body Mass Index 34.9 Assessment & Plan Assessment & Plan (1) Hypothyroidism: Code(s): E03.9 - Hypothyroidism, unspecified Category: Medical Qualifiers: 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 He had some fluctuations the in TSH over the past couple of months, he was switched to brand-name Synthroid, now most recent labs from 05/24/2025 showed normal TSH. He does not have any complaints at this time. He did say that he missed maybe 1 dose a week at the time he had those fluctuations. He is requiring quite a high dose of Synthroid. But for now we will continue. Plan: -continue Synthroid 300 mcg daily -ordered TSH, free T4 to be done in 6 weeks, we will reach out with the results -follow up in 6 months Plan I spent 30 minutes in reviewing the record, seeing the patient and documenting in the medical record. Orders: Orders Thyroid Stimulating Hormone 6 Weeks E03.9 - Hypothyroidism, unspecified Free T4 (Free Thyroxine) 6 Weeks E03.9 - Hypothyroidism, unspecified Medications: Changed From levothyroxine (Synthroid) Synthroid. No substitution 300 mcg PO DAILY 30 days 30 tabs 3RF To Synthroid (levothyroxine) Synthroid. 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
[2025-05-30 09:02] VITALS: BP 90/60; PULSE 54; O2SAT 98; BMI 34.9
== END 2025-05-30 09:21 | disposition home or self-care (01) ==
LOC: HO.ENCR 08:51
PROVIDERS: PCP Nurse Practitioner Family; Visit Provider Student in an Organized Health Care Education/Training Program
DX: E06.3 Autoimmune thyroiditis (principal)
CPT/HCPCS: 99214

== ENCOUNTER → 2025-05-30 08:50 | Outpatient (BNVA) | payer OTHER, SELFPAY | PROVIDERS: PCP Nurse Practitioner Family; Visit Provider Student in an Organized Health Care Education/Training Program | DX: E78.00 Pure hypercholesterolemia, unspecified (principal); E55.9 Vitamin D deficiency, unspecified; E06.3 Autoimmune thyroiditis; Z79.899 Other long term (current) drug therapy | CPT/HCPCS: 99212 ==

== ENCOUNTER 2025-05-30 10:52 | Outpatient (AMB) | payer OTHER, SELFPAY ==
--- NOTE | 2025-05-30 10:57 | MHC.PC.OV ---
Vital Signs 05/30/25 11:02 Height 5 ft 9 in Weight 236 lb 6 oz BMI 34.9 BP 109/66 Blood Pressure Location Rt brachial Position Sitting Respiration 16 Pulse 75 Pulse Source Pulse Oximeter Temp 98.2 F Temp Source Oral Pulse Oximetry (%) 97 Oxygen Delivery Method Room Air Intake Visit Reasons: 6 wks hypothyroidism, hypercholesterolemia RESCHED Intake Note: patient here for 6 wks follow up on vitamin-D deficiency and hypercholesterolemia Director Data Architecture Required: No Allergies No Known Allergies Allergy (Verified 05/30/25 11:21) Medication List - Last Reconciled 05/30/25 by Eros Oliveira CNP atorvastatin (Lipitor) 10 mg PO BEDTIME 30 days Synthroid (levothyroxine) 300 mcg PO DAILY 30 days NS Tobacco use date assessed: 05/30/25 Dental Screening Dental Screen Date: 05/30/25 Did you have a dental visit in the last 12 months?: No Did you have a dental problem in the last 6 months where you did not have access to dental care?: No Was dental information given to patient?: No HPI HPI Comments History of Present Illness Details 35-year-old male presents for hypercholesterolemia and vitamin-D deficiency follow-up. He admits to taking atorvastatin as prescribed without adverse reactions; however, he forgets to take the medication about 2 times a week. He was prescribed vitamin D3 1250 mcg weekly which he notes he completed course. He states that he has been making healthy lifestyle changes. He offers no complaints and denies acute symptoms at this time. 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 Cognitive needs: No Hearing needs: No Vision needs: No Questionnaire Thrive Questionnaire Date Thrive assessed: 10/18/24 I am a: Patient What is your living situation today?: I have a steady place to live Within the past 12 months, did the food you bought not last and you didn't have the money to get more?: I choose not to answer this question Within the past 12 months, did you worry whether your food would run out before you got money to buy more?: I choose not to answer this question Do you have trouble paying for medicines?: No Do you have trouble getting transportation to medical appointments?: No Do you have trouble paying your heating and electricity bill?: No Do you have trouble taking care of your child, family member or friend?: No Do you have trouble with day-to-day activities such as bathing, preparing meals, shopping, managing finances, etc.?: No Are you currently unemployed and looking for a job?: No Are you interested in more education?: No Please select the resources that you would like help with: None Currently or been in a relationship where the following occur: No concerns reported THRIVE Score: 0 AUDIT C Alcohol Use Questionnaire (AUDIT-C) 2. How many drinks containing alcohol do you have on a typical day when you are drinking?: 1 or 2 3. How often do you have six or more drinks on one occasion?: Never Total Score: 0 Review of Systems Const Details: Const Denies chills, Denies fatigue, Denies fever(s), Denies headache(s) and Denies weakness ENT Denies dizziness and Denies headache(s) Card Denies chest pain, Denies lightheadedness, Denies dyspnea and Denies other (Palpitations) Resp Denies cough, Denies dyspnea, Denies wheezing and Denies other ( shortness of breath) GI Denies abdominal pain, Denies melena, Denies hematochezia, Denies change in bowel habits, Denies dyspepsia and Denies nausea Denies hematuria and Denies dysuria Musc Denies abnormal gait, Denies myalgias, Denies arthralgias, Denies numbness and Denies tingling Skin/Breast Denies rash, Denies unusual bruising and Denies wounds Neuro Denies abnormal gait, Denies dizziness, Denies headache(s), Denies memory loss, Denies numbness, Denies Sensory deficit (Neuro), Denies tingling and Denies weakness Psych Denies anxiety, Denies depression, Denies memory loss Endo Denies cold intolerance, Denies fatigue, Denies heat intolerance, Denies polydipsia and Denies polyuria Aller/Immun Denies wheezing Physical exam (Primary Care) Vital Signs: Last Vital Signs Temp 98.2 F 05/30/25 11:02 Pulse 75 05/30/25 11:02 Resp 16 05/30/25 11:02 BP 109/66 05/30/25 11:02 Pulse Ox 97 05/30/25 11:02 Oxygen Delivery Method Room Air 05/30/25 11:02 BMI result Body Mass Index 34.9 Tobacco/Smoking Status: Tobacco use Status Tobacco use date assessed 05/30/25 05/30/25 11:06 Patient Tobacco Use Status Never used Tobacco 05/30/25 11:06 e-Cigarette/Vaping Use Never Used 05/30/25 11:06 Thrive Assessment: Date of Thrive Assessment Date Thrive assessed 10/18/24 05/30/25 11:06 Currently or been in a relationship where the following occur: No concerns reported Const Other: General: no acute distress and well developed Nutritional Appearance: well nourished Orientation/consciousness: patient oriented x3 HENMT Head: Yes normocephalic and Yes atraumatic Eyes General: appearance normal, both eyes and all related structures Pupils: Equal, round and reactive pupils present EOM: EOMs intact bilaterally Resp Effort & Inspection: normal respiratory effort Auscultation: clear to auscultation bilaterally Cardio Rate: regular rate Rhythm: regular rhythm Heart sounds: S1 normal heart sound present, S2 normal heart sound present, no gallops, no murmurs and no rubs GI Palpation (GI): No Abdominal aortic bruit present, Soft to palpation, nontender, No hepatosplenomegaly present and No Rebound tenderness present Auscultation: normal bowel sounds General: Yes no CVA tenderness Back/Spine/Pelvis Back: no CVA tenderness Cervical Spine: cervical ROM normal and No Cervical spine tenderness Thoracic/Lumbar Spine: thoraco-lumbar ROM normal, No pain with thoraco-lumbar ROM, No thoracic spinal tenderness and No lumbar spinal tenderness Extrem General: Yes normal to inspection, No edema and No calf tenderness Skin General: warm and dry. Normal skin color. Normal skin turgor Neuro General: patient oriented x3, gait normal and no focal neuro deficit Cranial nerves: Yes Equal, round and reactive pupils present Cognition (Neuro): normal cognition Gait exam (Neuro): Normal gait present Sensory Exam: No Sensory deficit (Neuro) Psych Appearance: grossly normal Affect: normal affect Attitude: cooperative Thought process: Normal thought process present Coding Level of Care Code Est Pt Level 4 (78527) Diagnoses Hypercholesterolemia E78.00 Vitamin D deficiency E55.9 Assessment & Plan Assessment & Plan (1) Hypercholesterolemia: Code(s): E78.00 - Pure hypercholesterolemia, unspecified Category: Medical Plan: Recent total cholesterol and LDL levels are elevated, 257 and 193 respectively, previous levels were 254 and 193 respectively. He forgets to take atorvastatin about 2 times a week. Atorvastatin increased to 20 mg daily at bedtime; advised to take as prescribed. Instructed on importance of compliance with the medication. Advised to limit foods high in saturated fat and avoid foods high in trans fat. Routine exercise encouraged. Fast for 10-12 hours, may drink water, and perform lipid panel blood work a few days before next visit. Follow-up in 6 weeks. Return sooner with symptoms or concerns. Verbalized understanding and agreed with the plan. (2) Vitamin D deficiency: Code(s): E55.9 - Vitamin D deficiency, unspecified Category: Medical Plan: Recent vitamin-D level is normal, 31.3. Informed that the sun is a good source of vitamin-D. Vitamin D3 25 mcg daily ordered; advised to take as prescribed. Will monitor vitamin-D level annually or as needed. Verbalized understanding and agreed with the plan. Orders: Orders Lipid Panel 6 Weeks E78.00 - Pure hypercholesterolemia, unspecified Medications: New atorvastatin (Lipitor) 20 mg PO BEDTIME 90 tabs 1RF 90 days Discontinued atorvastatin (Lipitor) Discontinued Reason: Doctor's Order 10 mg PO BEDTIME 30 days 30 tabs 3RF
[2025-05-30 11:02] VITALS: BP 109/66; PULSE 75; RESP 16; TEMP 36.8; O2SAT 97; BMI 34.9
== END 2025-05-30 11:30 | disposition home or self-care (01) ==
LOC: HO.HMCFM 10:53
PROVIDERS: PCP Nurse Practitioner Family; Visit Provider Nurse Practitioner Family
DX: E78.00 Pure hypercholesterolemia, unspecified (principal); E55.9 Vitamin D deficiency, unspecified

== ENCOUNTER 2025-07-19 10:37 | Outpatient (REF) | payer OTHER, SELFPAY ==
[2025-07-19 14:06] LABS: Cholesterol 241 mg/dL (<200); HDL Cholesterol 46 mg/dL (>40); Triglycerides 62 mg/dL (<150)
[2025-07-19 14:23] LABS: Free T4 (Free Thyroxine) 1.20 ng/dL (0.71-1.85); Thyroid Stimulating Hormone 5.52 uIU/mL (0.32-4.0)
== END 2025-07-19 10:38 | disposition home or self-care (01) ==
LOC: HO.HMGCLDS 10:37
PROVIDERS: Student in an Organized Health Care Education/Training Program; PCP Nurse Practitioner Family; Visit Provider Nurse Practitioner Family
DX: E03.9 Hypothyroidism, unspecified (principal); E78.00 Pure hypercholesterolemia, unspecified
CPT/HCPCS: 36415; 80061; 84439; 84443

== ENCOUNTER 2025-07-25 10:58 | Outpatient (AMB) | payer OTHER, SELFPAY ==
--- NOTE | 2025-07-25 10:55 | A.OFFPC_ITS ---
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 He admits to taking his medications as prescribed without adverse reactions. He notes that he has been making healthy lifestyle changes. He has been consuming less red meat and fast foods. He exercises 3 days weekly. He offers no complaints and denies acute symptoms at this time. 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 Cognitive needs: No Hearing needs: No Vision needs: No Questionnaire Thrive Questionnaire Date Thrive assessed: 10/18/24 I am a: Patient What is your living situation today?: I have a steady place to live Within the past 12 months, did the food you bought not last and you didn't have the money to get more?: I choose not to answer this question Within the past 12 months, did you worry whether your food would run out before you got money to buy more?: I choose not to answer this question Do you have trouble paying for medicines?: No Do you have trouble getting transportation to medical appointments?: No Do you have trouble paying your heating and electricity bill?: No Do you have trouble taking care of your child, family member or friend?: No Do you have trouble with day-to-day activities such as bathing, preparing meals, shopping, managing finances, etc.?: No Are you currently unemployed and looking for a job?: No Are you interested in more education?: No Please select the resources that you would like help with: None Currently or been in a relationship where the following occur: No concerns reported THRIVE Score: 0 Review of Systems Const Details: Denies chills, Denies fatigue, Denies fever(s), Denies headache(s) and Denies weakness Cardiac Denies chest pain, Denies claudication, Denies leg edema, Denies lightheadedness, Denies palpitations, Denies dyspnea, Denies dyspnea on exertion, Denies orthopnea and Denies other (Loss of consciousness) Resp Denies cough, Denies excessive phlegm production, Denies dyspnea, Denies dyspnea on exertion, Denies snoring and Denies wheezing Physical exam (Primary Care) Tobacco/Smoking Status: Tobacco use Status Tobacco use date assessed 07/25/25 07/25/25 10:57 Patient Tobacco Use Status Never used Tobacco 07/25/25 10:57 e-Cigarette/Vaping Use Never Used 07/25/25 10:57 Thrive Assessment: Date of Thrive Assessment Date Thrive assessed 10/18/24 07/25/25 10:57 Currently or been in a relationship where the following occur: No concerns reported Const Other: Patient is alert and oriented x3 Telehealth Telehealth Telehealth Platform: Telephone Location of provider rendering services: practice address Location of patient: address on file Patient Identification confirmed using: Name, : Yes Telehealth method: voice only Patient verbally consented to treatment: Yes Patient verbally consented to billing insurance company: Yes Patient informed of any privacy concerns related to visit: Yes Coding Level of Care Code Tele Est Pt Level 3 (44985) Diagnoses Hypercholesterolemia E78.00 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 Atorvastatin increased to 40 mg daily at bedtime Advised to limit foods high in saturated fat and avoid foods high in trans fat. Routine exercise encouraged. Fast for 10-12 hours, may drink water, and performed lipid panel blood work a few days before next visit. Follow-up for transfer care with a new provider in 6-8 weeks. Return sooner with symptoms or concerns. Verbalized understanding and agreed with the plan. (2) Hypothyroidism: Code(s): E03.9 - Hypothyroidism, unspecified Category: Medical Qualifiers: Hypothyroidism type: due to Ronni's thyroiditis Qualified Code(s): E06.3 - Autoimmune thyroiditis Plan: Recent TSH level is slightly elevated, 5.52, free T4 is normal. Continue current treatment regimen. Advised to take Synthroid on an empty stomach, with a full glass of water, 1 hour before other medications or meal. Recheck TSH/T4 before next visit. Followed by endocrinology. Verbalized understanding and agreed with the plan. Orders: Orders Lipid Panel 6 Weeks E78.00 - Pure hypercholesterolemia, unspecified TSH reflex Free T4 6 Weeks E06.3 - Autoimmune thyroiditis Medications: New atorvastatin (Lipitor) 40 mg PO BEDTIME 30 tabs 3RF 30 days Discontinued atorvastatin (Lipitor) Discontinued Reason: Doctor's Order 20 mg PO BEDTIME 90 days 90 tabs 1RF
== END 2025-07-25 11:54 | disposition home or self-care (01) ==
LOC: HO.HMCFM 10:59
PROVIDERS: PCP Nurse Practitioner Family; Visit Provider Nurse Practitioner Family
DX: E78.00 Pure hypercholesterolemia, unspecified (principal); E06.3 Autoimmune thyroiditis